=== PATIENT | female | born 1980 | race Caucasian/White ===

== ENCOUNTER 2023-06-11 12:44 | Outpatient (RCR) | payer BC, SELFPAY ==
[2023-06-05 12:44] LABS: % Basophils 0.5 % (0-2); % Eosinophils 2.5 % (0-6); % Immature Granulocytes 0.2 % (0-0.5); % Lymphocytes 16.6 % (20.5-51.1); % Monocytes 12.1 % (1.7-9.3); % Neutrophils 68.1 % (42.2-75.2); Absolute Eosinophils 0.1 10^3/uL (0-0.7); Absolute Lymphocytes 0.7 10^3/uL (1.2-3.4); Absolute Monocytes 0.5 10^3/uL (0.1-0.6); Absolute Neutrophils 2.8 10^3/uL (1.4-6.5); Hemoglobin 13.2 g/dL (12.0-16.0); Mean Corp Hgb Conc. 34.7 g/dL (33.0-37.0); Mean Corpuscular Hgb 33.7 pg (27.0-31.0); Mean Corpuscular Volume 96.9 fL (81.0-99.0); Mean Platelet Volume 9.5 fL (7.4-10.4); Nucleated Red Blood Cells % 0 %; Platelet Count 271 10^3/uL (130-400); Red Blood Cell Count 3.92 10^6/uL (4.20-5.40); Red Cell Dist. Width 12.1 % (11.5-14.5)
[2023-06-05 12:59] LABS: Lactic Acid 0.6 mmol/L (0.7-2.0)
[2023-06-05 13:02] LABS: ALT (SGPT) 17 U/L (0-35); AST (SGOT) 26 U/L (14-36); Albumin 4.7 g/dl (3.5-5.0); Alkaline Phosphatase 36 U/L (38-126); Blood Urea Nitrogen 21 mg/dl (7-17); Calcium 9.2 mg/dl (8.4-10.2); Carbon Dioxide 25 mmol/L (22-30); Chloride 103 mmol/L (98-107); Glucose 92 mg/dl (70-99); Potassium 4.2 mmol/L (3.5-5.1); Sodium 134 mmol/L (135-145); Total Bilirubin 0.9 mg/dl (0.2-1.3); Total Protein 6.9 g/dl (6.3-8.2); eGFR > 60.00
[2023-06-05 13:10] LABS: NT-proBNP 38.6 pg/ml
[2023-06-05 13:45] LABS: Erythrocyte Sed Rate 2 mm/hour (0-20)
[2023-06-05 15:10] LABS: Urine Bacteria Few (Negative); Urine Red Blood Cell 0-2 /HPF (0-2); Urine Squamous Cell 0-2 /LPF (Few); Urine White Cell 0-2 /HPF (0-5)
[2023-06-05 15:38] LABS: Protein/creatinine Ratio 0.1; Urine Protein 6 mg/dl
[2023-06-05 23:26] LABS: Complement C3 63 mg/dl (88-165)
[2023-06-07 11:53] LABS: Haptoglobin 79 mg/dL (30-200)
[2023-06-07 23:12] LABS: Vitamin B6 Results 121.9 nmol/L (20.0-125.0)
[2023-06-11 14:30] VITALS: BP 111/70
[2023-06-11] MEDS: BENLYSTA 250 MG IV (14:37)
[2023-06-11 14:41] VITALS: BMI 21.3
== END 2023-06-12 09:26 | disposition home or self-care (01) ==
LOC: OID 12:44
PROVIDERS: ATTENDING PHYSICIAN Internal Medicine; FAMILY PHYSICIAN Nurse Practitioner Primary Care
DX: M32.9 Systemic lupus erythematosus, unspecified (principal)
CPT/HCPCS: 80053; 81015; 82570; 83010; 83605; 83880; 84156; 84207; 85025; 85652; 86140; 86160; 86880; 96365; J0490

== ENCOUNTER 2023-07-10 14:31 | Outpatient (RCR) | payer BC, SELFPAY ==
[2023-07-10 14:33] VITALS: BP 117/70
[2023-07-10] MEDS: BENLYSTA 250 MG IV (14:34)
== END 2023-07-21 23:59 | disposition home or self-care (01) ==
LOC: OID 14:31
PROVIDERS: ATTENDING PHYSICIAN Internal Medicine; FAMILY PHYSICIAN Nurse Practitioner Primary Care
DX: M32.9 Systemic lupus erythematosus, unspecified (principal)
CPT/HCPCS: 96365; J0490

== ENCOUNTER → 2023-07-25 13:27 | Outpatient (REF) | payer BC, SELFPAY | LOC: CLAB 13:27 | PROVIDERS: ATTENDING PHYSICIAN Nurse Practitioner Primary Care; REFERRING PHYSICIAN Dermatology | DX: L30.8 Other specified dermatitis (principal) | CPT/HCPCS: 87070; 87077; 87147; 87186; 87205 ==

== ENCOUNTER 2023-08-07 13:34 | Outpatient (RCR) | payer BC, SELFPAY ==
[2023-08-07] MEDS: BENLYSTA 250 MG IV (14:10)
[2023-08-07 14:12] VITALS: BP 125/63
[2023-08-20 10:52] LABS: % Basophils 0.3 % (0-2); % Lymphocytes 17.1 % (20.5-51.1); % Monocytes 11.3 % (1.7-9.3); % Neutrophils 67.3 % (42.2-75.2); Absolute Eosinophils 0.1 10^3/uL (0-0.7); Absolute Lymphocytes 0.6 10^3/uL (1.2-3.4); Absolute Monocytes 0.4 10^3/uL (0.1-0.6); Absolute Neutrophils 2.3 10^3/uL (1.4-6.5); Hematocrit 38.5 % (37.0-47.0); Hemoglobin 13.2 g/dL (12.0-16.0); Mean Corp Hgb Conc. 34.3 g/dL (33.0-37.0); Mean Corpuscular Hgb 33.5 pg (27.0-31.0); Mean Corpuscular Volume 97.7 fL (81.0-99.0); Mean Platelet Volume 9.2 fL (7.4-10.4); Platelet Count 281 10^3/uL (130-400); Red Blood Cell Count 3.94 10^6/uL (4.20-5.40); Red Cell Dist. Width 12.8 % (11.5-14.5); White Blood Cell Count 3.5 10^3/uL (4.8-10.8)
[2023-08-20 11:51] LABS: Iron 133 ug/dl (37-170); Percent Saturation 53 % (20-50); Total Iron Binding Capacity 247 ug/dl (265-497)
== END 2023-08-20 23:59 | disposition home or self-care (01) ==
LOC: OID 13:34
PROVIDERS: Internal Medicine Gastroenterology; ATTENDING PHYSICIAN Internal Medicine; FAMILY PHYSICIAN Nurse Practitioner Primary Care
DX: M32.9 Systemic lupus erythematosus, unspecified (principal)
CPT/HCPCS: 36415; 82728; 83540; 83550; 85025; 96365; J0490

== ENCOUNTER 2023-09-03 13:55 | Outpatient (RCR) | payer BC, SELFPAY ==
[2023-09-03 14:30] VITALS: BP 108/70
[2023-09-03] MEDS: BENLYSTA 250 MG IV (14:54)
[2023-09-03 14:57] VITALS: BMI 20.6
== END 2023-09-04 10:07 | disposition home or self-care (01) ==
LOC: OID 13:55
PROVIDERS: ATTENDING PHYSICIAN Internal Medicine; FAMILY PHYSICIAN Nurse Practitioner Primary Care
DX: M32.9 Systemic lupus erythematosus, unspecified (principal)
CPT/HCPCS: 96365; J0490

== ENCOUNTER 2023-10-16 09:33 | Outpatient (RCR) | payer BC, SELFPAY ==
[2023-10-01] MEDS: BENLYSTA 250 MG IV (14:21)
[2023-10-01 14:24] VITALS: BMI 20.6
[2023-10-01 14:27] VITALS: BP 122/77
[2023-10-01 15:19] LABS: TSH Reflex To Free T4 0.61 uIU/ml (0.47-4.68)
[2023-10-01 16:00] LABS: Erythrocyte Sed Rate 11 mm/hour (0-20)
[2023-10-01 16:14] LABS: Vitamin B12 546 pg/ml (239-931)
[2023-10-03 13:58] LABS: Lyme Antibody Screen, EIA Negative (Negative)
[2023-10-05 00:12] LABS: Albumin 5.18 g/dL (3.75-5.01); Alpha 1 Globulin 0.27 g/dL (0.19-0.46); Alpha 2 Globulin 0.59 g/dL (0.48-1.05); Free Kappa Light Chains,Quant 11.17 mg/L (3.30-19.40); Free Lambda Light Chains,Quant 12.31 mg/L (5.71-26.30); IgA 179 mg/dL (68-408); IgG 928 mg/dL (768-1632); IgM 52 mg/dL (35-263); Immunofixation Electrophoresis IFE Done; Kappa/Lambda Fr Light Ratio 0.91 (0.26-1.65); Total Protein-Electrophoresis 7.6 g/dL (6.3-8.2)
[2023-10-06 05:56] LABS: Methylmalonic Acid 0.13 umol/L (0.00-0.40)
[2023-10-16 09:53] LABS: % Basophils 0.6 % (0-2); % Eosinophils 4.2 % (0-6); % Immature Granulocytes 0.2 % (0-0.5); % Monocytes 7.5 % (1.7-9.3); % Neutrophils 71.5 % (42.2-75.2); Absolute Eosinophils 0.2 10^3/uL (0-0.7); Absolute Lymphocytes 0.8 10^3/uL (1.2-3.4); Absolute Monocytes 0.4 10^3/uL (0.1-0.6); Absolute Neutrophils 3.7 10^3/uL (1.4-6.5); Hemoglobin 13.2 g/dL (12.0-16.0); Mean Corp Hgb Conc. 33.8 g/dL (33.0-37.0); Mean Corpuscular Hgb 33.2 pg (27.0-31.0); Mean Platelet Volume 8.9 fL (7.4-10.4); Platelet Count 325 10^3/uL (130-400); Red Blood Cell Count 3.98 10^6/uL (4.20-5.40); Red Cell Dist. Width 12.4 % (11.5-14.5); White Blood Cell Count 5.2 10^3/uL (4.8-10.8)
[2023-10-16 10:36] LABS: Nucleated Red Blood Cells % 0 %
[2023-10-16 11:02] LABS: Erythrocyte Sed Rate 8 mm/hour (0-20)
[2023-10-16 11:28] LABS: Urine Protein 11 mg/dl
[2023-10-16 11:29] LABS: ALT (SGPT) 17 U/L (0-35); AST (SGOT) 22 U/L (14-36); Albumin 4.7 g/dl (3.5-5.0); Alkaline Phosphatase 37 U/L (38-126); Blood Urea Nitrogen 16 mg/dl (7-17); Calcium 9.6 mg/dl (8.4-10.2); Carbon Dioxide 30 mmol/L (22-30); Chloride 101 mmol/L (98-107); Estimated Creatinine Clearance 80 ml/min; Glucose 78 mg/dl (70-99); Potassium 4.5 mmol/L (3.5-5.1); Sodium 138 mmol/L (135-145); Total Bilirubin 0.6 mg/dl (0.2-1.3); Total Protein 7.1 g/dl (6.3-8.2); eGFR > 60.00
[2023-10-16 11:29] LABS: Urine Albumin Negative (Neg - Trace); Urine Bilirubin Negative (Negative); Urine Character Clear (Clear); Urine Color Yellow; Urine Glucose Negative (Negative); Urine Ketone Negative (Negative); Urine Leukocyte Negative (Negative); Urine Nitrite Negative (Negative); Urine Occult Blood Negative (Negative); Urine Specific Gravity 1.005 (<1.030); Urine Urobilinogen Negative (Neg - 1+)
[2023-10-16 11:35] LABS: Urine Squamous Cell 21-25 /LPF (Few)
[2023-10-16 11:37] LABS: Urine Red Blood Cell None Seen /HPF (0-2); Urine White Cell None Seen /HPF (0-5)
[2023-10-16 11:43] LABS: Complement C3 78 mg/dl (88-165)
[2023-10-16 15:58] LABS: Protein/creatinine Ratio 0.4
[2023-10-17 19:19] LABS: Hepatitis B Core Ab, Total Negative (Negative)
[2023-10-17 19:20] LABS: Hepatitis A Antibody, Total Negative (Negative)
[2023-10-18 22:22] LABS: ds-DNA Ab, IgG Reflex To Titer 8 IU (0-24)
[2023-10-18 23:02] LABS: Quantiferon Mitogen minus NIL 9.99 IU/mL; Quantiferon NIL 0.01 IU/mL; Quantiferon Plus TB1 minus NIL 0.01 IU/mL (<=0.34); Quantiferon Plus TB2 minus NIL 0.04 IU/mL (<=0.34); Quantiferon TB Gold Plus Negative (Negative)
== END 2023-10-20 23:59 | disposition home or self-care (01) ==
LOC: OID 09:33
PROVIDERS: ATTENDING PHYSICIAN Internal Medicine; FAMILY PHYSICIAN Nurse Practitioner Primary Care
DX: M32.9 Systemic lupus erythematosus, unspecified (principal)
CPT/HCPCS: 36415; 80053; 81003; 81015; 82570; 82607; 82784; 83521; 83921; 84155; 84156; 84165; 84443; 85025; 85652; 86140; 86160; 86225; 86334; 86480; 86618; 86704; 86705; 86708; 87902; 96365; J0490

== ENCOUNTER 2023-10-29 14:23 | Outpatient (RCR) | payer BC, SELFPAY ==
[2023-10-29 14:30] VITALS: BP 106/59
[2023-10-29] MEDS: BENLYSTA 250 MG IV (14:31)
== END 2023-10-30 10:57 | disposition home or self-care (01) ==
LOC: OID 14:23
PROVIDERS: ATTENDING PHYSICIAN Internal Medicine; FAMILY PHYSICIAN Nurse Practitioner Primary Care
DX: M32.9 Systemic lupus erythematosus, unspecified (principal)
CPT/HCPCS: 96365; J0490

== ENCOUNTER 2023-11-26 14:14 | Outpatient (RCR) | payer BC, SELFPAY ==
[2023-11-26] MEDS: BENLYSTA 250 MG IV (15:07)
[2023-11-26 15:18] VITALS: BP 110/74
== END 2023-11-27 10:17 | disposition home or self-care (01) ==
LOC: OID 14:14
PROVIDERS: ATTENDING PHYSICIAN Internal Medicine; FAMILY PHYSICIAN Nurse Practitioner Primary Care
DX: M32.9 Systemic lupus erythematosus, unspecified (principal)
CPT/HCPCS: 96365; J0490

== ENCOUNTER → 2023-12-20 08:32 | Outpatient (REF) | payer BC, SELFPAY ==
[2023-12-20 09:34] LABS: HDL Cholesterol 84 mg/dl; LDL Cholesterol, Calculated 59 mg/dl; Total Cholesterol 157 mg/dl (50-199); Triglyceride 72 mg/dl (10-149); Very Low Density Lipoprotein 14 mg/dl (0-30)
== END ==
LOC: OIDL 08:32
PROVIDERS: ATTENDING PHYSICIAN Nurse Practitioner Primary Care
DX: Z00.00 Encounter for general adult medical examination without abnormal findings (principal)
CPT/HCPCS: 80061

== ENCOUNTER 2023-12-26 09:12 | Outpatient (RCR) | payer BC, SELFPAY ==
[2023-12-26 09:19] VITALS: BP 128/73
[2023-12-26] MEDS: BENLYSTA 250 MG IV (09:37)
[2023-12-26 09:41] LABS: % Basophils 1.3 % (0-2); % Eosinophils 5.2 % (0-6); % Monocytes 14.5 % (1.7-9.3); Absolute Eosinophils 0.2 10^3/uL (0-0.7); Absolute Lymphocytes 0.6 10^3/uL (1.2-3.4); Absolute Monocytes 0.5 10^3/uL (0.1-0.6); Absolute Neutrophils 1.8 10^3/uL (1.4-6.5); Hematocrit 37.9 % (37.0-47.0); Mean Corp Hgb Conc. 34.3 g/dL (33.0-37.0); Mean Corpuscular Hgb 32.6 pg (27.0-31.0); Mean Platelet Volume 9.6 fL (7.4-10.4); Platelet Count 265 10^3/uL (130-400); Red Blood Cell Count 3.99 10^6/uL (4.20-5.40); Red Cell Dist. Width 11.7 % (11.5-14.5); White Blood Cell Count 3.1 10^3/uL (4.8-10.8)
[2023-12-26 10:17] LABS: ALT (SGPT) 17 U/L (0-35); AST (SGOT) 23 U/L (14-36); Albumin 4.6 g/dl (3.5-5.0); Alkaline Phosphatase 35 U/L (38-126); Blood Urea Nitrogen 18 mg/dl (7-17); Calcium 9.3 mg/dl (8.4-10.2); Carbon Dioxide 22 mmol/L (22-30); Chloride 104 mmol/L (98-107); Glucose 89 mg/dl (70-99); Potassium 4.1 mmol/L (3.5-5.1); Sodium 138 mmol/L (135-145); Total Bilirubin 0.9 mg/dl (0.2-1.3); Total Protein 6.6 g/dl (6.3-8.2); eGFR > 60.00
[2023-12-26 11:04] LABS: Erythrocyte Sed Rate 9 mm/hour (0-20)
[2023-12-26 11:17] LABS: Urine Albumin Negative (Neg - Trace); Urine Bilirubin Negative (Negative); Urine Character Clear (Clear); Urine Color Yellow; Urine Glucose Negative (Negative); Urine Ketone Negative (Negative); Urine Leukocyte Negative (Negative); Urine Nitrite Negative (Negative); Urine Occult Blood Negative (Negative); Urine Urobilinogen Negative (Neg - 1+)
[2023-12-26 11:33] LABS: C-Reactive Protein < 5.00 mg/L (0.0-10.00)
[2023-12-26 11:46] LABS: Complement C3 76 mg/dl (88-165)
[2023-12-26 11:47] LABS: Urine Red Blood Cell 0-2 /HPF (0-2); Urine White Cell 0-2 /HPF (0-5)
[2023-12-26 12:03] LABS: Protein/creatinine Ratio 0.5; Urine Protein 11 mg/dl
[2023-12-28 01:27] LABS: ds-DNA Ab, IgG Reflex To Titer 5 IU (0-24)
== END 2023-12-27 09:47 | disposition home or self-care (01) ==
LOC: OID 09:12
PROVIDERS: ATTENDING PHYSICIAN Internal Medicine; FAMILY PHYSICIAN Nurse Practitioner Primary Care
DX: M32.9 Systemic lupus erythematosus, unspecified (principal)
CPT/HCPCS: 36415; 80053; 81003; 81015; 82570; 84156; 85025; 85652; 86140; 86160; 86225; 96365; J0490

== ENCOUNTER 2024-02-18 14:09 | Outpatient (RCR) | payer BC, SELFPAY ==
[2024-01-22] MEDS: BENLYSTA 250 MG IV (14:25)
[2024-01-22 14:32] VITALS: BP 110/65
[2024-02-18] MEDS: BENLYSTA 250 MG IV (14:28)
[2024-02-18 14:36] VITALS: BP 126/77
== END 2024-02-19 10:31 | disposition home or self-care (01) ==
LOC: OID 14:09
PROVIDERS: ATTENDING PHYSICIAN Internal Medicine; FAMILY PHYSICIAN Nurse Practitioner Primary Care
DX: M32.9 Systemic lupus erythematosus, unspecified (principal)
CPT/HCPCS: 96365; J0490

== ENCOUNTER → 2024-02-25 09:16 | Outpatient (REF) | payer BC, SELFPAY | LOC: HWWDC 09:16 | PROVIDERS: ATTENDING PHYSICIAN Nurse Practitioner Primary Care | DX: Z12.31 Encounter for screening mammogram for malignant neoplasm of breast (principal) | CPT/HCPCS: 77063; 77067 ==

== ENCOUNTER → 2024-02-25 09:44 | Outpatient (REF) | payer BC, SELFPAY | LOC: HWRCS 09:44 | PROVIDERS: ATTENDING PHYSICIAN Internal Medicine Cardiovascular Disease; FAMILY PHYSICIAN Nurse Practitioner Primary Care | DX: I34.0 Nonrheumatic mitral (valve) insufficiency (principal) | CPT/HCPCS: 93306 ==

== ENCOUNTER 2024-03-17 12:52 | Outpatient (RCR) | payer BC, SELFPAY ==
[2024-03-17] MEDS: BENLYSTA 250 MG IV (13:38)
[2024-03-17 13:46] VITALS: BP 115/73
[2024-03-17 15:07] LABS: % Basophils 0.6 % (0-2); % Eosinophils 4.1 % (0-6); % Lymphocytes 14.9 % (20.5-51.1); % Monocytes 9.7 % (1.7-9.3); % Neutrophils 70.7 % (42.2-75.2); Absolute Eosinophils 0.3 10^3/uL (0-0.7); Absolute Monocytes 0.6 10^3/uL (0.1-0.6); Absolute Neutrophils 4.6 10^3/uL (1.4-6.5); Hematocrit 37.1 % (37.0-47.0); Hemoglobin 12.7 g/dL (12.0-16.0); Mean Corp Hgb Conc. 34.2 g/dL (33.0-37.0); Mean Corpuscular Hgb 32.2 pg (27.0-31.0); Mean Corpuscular Volume 93.9 fL (81.0-99.0); Platelet Count 287 10^3/uL (130-400); Red Blood Cell Count 3.95 10^6/uL (4.20-5.40); White Blood Cell Count 6.5 10^3/uL (4.8-10.8)
[2024-03-17 15:26] LABS: Nucleated Red Blood Cells % 0 %
[2024-03-17 15:35] LABS: Urine Albumin Negative (Neg - Trace); Urine Bilirubin Negative (Negative); Urine Character Clear (Clear); Urine Color Yellow; Urine Glucose Negative (Negative); Urine Ketone Negative (Negative); Urine Leukocyte Trace (Negative); Urine Nitrite Negative (Negative); Urine Occult Blood Negative (Negative); Urine Urobilinogen Negative (Neg - 1+)
[2024-03-17 15:43] LABS: ALT (SGPT) 16 U/L (0-35); AST (SGOT) 21 U/L (14-36); Albumin 4.1 g/dl (3.5-5.0); Alkaline Phosphatase 36 U/L (38-126); Blood Urea Nitrogen 20 mg/dl (7-17); Calcium 8.5 mg/dl (8.4-10.2); Carbon Dioxide 26 mmol/L (22-30); Chloride 102 mmol/L (98-107); Glucose 88 mg/dl (70-99); Potassium 4.1 mmol/L (3.5-5.1); Sodium 138 mmol/L (135-145); Total Bilirubin 0.2 mg/dl (0.2-1.3); Total Protein 6.2 g/dl (6.3-8.2); eGFR > 60.00
[2024-03-17 15:44] LABS: Urine Squamous Cell 16-20 /LPF (Few)
[2024-03-17 15:45] LABS: Urine Bacteria Moderate (Negative); Urine Red Blood Cell 0-2 /HPF (0-2)
[2024-03-17 16:01] LABS: Urine Protein < 5 mg/dl
[2024-03-17 16:28] LABS: Erythrocyte Sed Rate 8 mm/hour (0-20)
[2024-03-17 16:59] LABS: Complement C3 88 mg/dl (88-165)
[2024-03-17 17:30] LABS: Hepatitis B Core Ab, Total Negative (Negative)
[2024-03-19 22:54] LABS: HBV Quant by NAAT IU/mL Not Detected; HBV Quant by NAAT Interp Not Detected (Not Detected); HBV Quant by NAAT Log IU/mL Not Detected log IU/mL
[2024-03-20 07:08] LABS: DNase-B Antibody 153 U/mL (<=259)
[2024-03-20 20:41] LABS: HCV Quant by NAAT IU/mL Not Detected; HCV Quant by NAAT Interp Not Detected (Not Detected); HCV Quant by NAAT Log IU/mL Not Detected log IU/mL
== END 2024-03-18 10:10 | disposition home or self-care (01) ==
LOC: OID 12:52
PROVIDERS: Physician Assistant; ATTENDING PHYSICIAN Internal Medicine; FAMILY PHYSICIAN Nurse Practitioner Primary Care
DX: M32.9 Systemic lupus erythematosus, unspecified (principal)
CPT/HCPCS: 36415; 80053; 81003; 81015; 82570; 84156; 85025; 85652; 86140; 86160; 86215; 86704; 87517; 87522; 96365; J0490

== ENCOUNTER 2024-04-14 11:08 | Outpatient (RCR) | payer BC, SELFPAY ==
[2024-04-14 12:00] VITALS: BP 112/7
[2024-04-14] MEDS: BENLYSTA 250 MG IV (12:04)
== END 2024-04-16 09:51 | disposition home or self-care (01) ==
LOC: OID 11:08
PROVIDERS: ATTENDING PHYSICIAN Internal Medicine; FAMILY PHYSICIAN Nurse Practitioner Primary Care
DX: M32.9 Systemic lupus erythematosus, unspecified (principal)
CPT/HCPCS: 96365; J0490

== ENCOUNTER 2024-05-13 14:17 | Outpatient (RCR) | payer BC, SELFPAY ==
[2024-05-13 14:20] VITALS: BP 116/70
[2024-05-13] MEDS: BENLYSTA 250 MG IV (14:22)
[2024-05-13] MEDS: CLARITIN 10 MG PO (15:20)
--- NOTE | 2024-05-13 15:41 | PTCARENOTE ---
1520: pt c/o red itchy rash on abdomen , infusion almost complete, and pt did not want this public relations writer to turn off, pt did state that she did not take claritin prior to infusion today, which she usually does. no s/s distress noted; TT Meagan TECHNICAL OPERATOR, and
claritin ordered and given. will monitor.
--- NOTE | 2024-05-13 15:44 | PTCARENOTE ---
pt's rash still itching and stating it's now on b/l arms, (pt refusing benadryl iv at this time which is on reaction sheet protocol) Pt in no distress 100% ra pox, vs: hr 65, bp: 134/90; 20mg iv pepcid and 50 of hydrocortisone given (pt only
wanting 50mg instead of 100mg). Pt states she feels fine. will follow.
[2024-05-13] MEDS: PEPCID 10 MG IV (15:53)
[2024-05-13] MEDS: PEPCID 10 ML IV (15:53)
[2024-05-13] MEDS: SOLU-CORTEF 50 MG IV (15:57)
--- NOTE | 2024-05-13 16:01 | PTCARENOTE ---
pt in no distress after meds and rash now dissipating .
== END 2024-05-14 10:15 | disposition home or self-care (01) ==
LOC: OID 14:17
PROVIDERS: ATTENDING PHYSICIAN Internal Medicine; FAMILY PHYSICIAN Nurse Practitioner Primary Care
DX: M32.9 Systemic lupus erythematosus, unspecified (principal)
CPT/HCPCS: 96365; 96375; J0490

== ENCOUNTER 2024-06-10 13:21 | Outpatient (RCR) | payer BC, SELFPAY ==
[2024-06-10] MEDS: CLARITIN 10 MG PO (14:08)
[2024-06-10] MEDS: TYLENOL 1000 MG PO (14:08)
[2024-06-10] MEDS: SOLU-MEDROL PF 50.64 MG IV (14:09)
[2024-06-10] MEDS: BENLYSTA 250 MG IV (14:26)
[2024-06-10 14:28] VITALS: BP 128/76
== END 2024-06-11 09:36 | disposition home or self-care (01) ==
LOC: OID 13:21
PROVIDERS: ATTENDING PHYSICIAN Internal Medicine; FAMILY PHYSICIAN Nurse Practitioner Primary Care
DX: M32.9 Systemic lupus erythematosus, unspecified (principal)
CPT/HCPCS: 96365; 96367; J0490

== ENCOUNTER 2024-07-06 11:26 | Outpatient (RCR) | payer BC, SELFPAY ==
[2024-06-26 09:11] LABS: % Basophils 1.7 % (0-2); % Eosinophils 4.1 % (0-6); % Immature Granulocytes 0.9 % (0-0.5); % Lymphocytes 15.3 % (20.5-51.1); % Monocytes 9.4 % (1.7-9.3); % Neutrophils 68.6 % (42.2-75.2); Absolute Basophils 0.1 10^3/uL (0-0.2); Absolute Eosinophils 0.2 10^3/uL (0-0.7); Absolute Immature Granulocytes 0.1 10^3/uL (0-0.05); Absolute Lymphocytes 0.8 10^3/uL (1.2-3.4); Absolute Monocytes 0.5 10^3/uL (0.1-0.6); Absolute Neutrophils 3.6 10^3/uL (1.4-6.5); Hematocrit 39.8 % (37.0-47.0); Hemoglobin 13.5 g/dL (12.0-16.0); Mean Corp Hgb Conc. 33.9 g/dL (33.0-37.0); Mean Corpuscular Hgb 31.6 pg (27.0-31.0); Mean Corpuscular Volume 93.2 fL (81.0-99.0); Mean Platelet Volume 8.6 fL (7.4-10.4); Platelet Count 476 10^3/uL (130-400); Red Blood Cell Count 4.27 10^6/uL (4.20-5.40); Red Cell Dist. Width 11.9 % (11.5-14.5); White Blood Cell Count 5.3 10^3/uL (4.8-10.8)
[2024-06-26 09:47] LABS: Nucleated Red Blood Cells % 0 %
[2024-06-26 10:15] LABS: ALT (SGPT) 28 U/L (0-35); AST (SGOT) 20 U/L (14-36); Albumin 4.3 g/dl (3.5-5.0); Alkaline Phosphatase 39 U/L (38-126); Blood Urea Nitrogen 23 mg/dl (7-17); Calcium 9.4 mg/dl (8.4-10.2); Carbon Dioxide 30 mmol/L (22-30); Chloride 98 mmol/L (98-107); Glucose 88 mg/dl (70-99); Iron 82 ug/dl (37-170); Potassium 4.6 mmol/L (3.5-5.1); Sodium 135 mmol/L (135-145); Total Bilirubin 0.6 mg/dl (0.2-1.3); Total Protein 6.8 g/dl (6.3-8.2); eGFR > 60.00
[2024-06-26 10:18] LABS: C-Reactive Protein < 5.00 mg/L (0.0-10.00)
[2024-06-26 10:24] LABS: Percent Saturation 29 % (20-50); Total Iron Binding Capacity 277 ug/dl (265-497)
[2024-06-26 10:53] LABS: Ferritin 60.8 ng/ml (6.24-137)
[2024-06-26 11:12] LABS: Erythrocyte Sed Rate 7 mm/hour (0-20)
[2024-06-26 12:50] LABS: Protein/creatinine Ratio 0.3; Urine Protein 11 mg/dl
[2024-06-26 13:24] LABS: Urine Bacteria Few (Negative); Urine Red Blood Cell 0-2 /HPF (0-2); Urine Squamous Cell 16-20 /LPF (Few); Urine White Cell 0-2 /HPF (0-5)
[2024-06-28 01:38] LABS: ds-DNA Ab, IgG Reflex To Titer 83 IU (0-24)
[2024-06-29 00:04] LABS: Complement C3 70 mg/dl (88-165)
[2024-07-06 11:50] VITALS: BP 109/63
[2024-07-06] MEDS: SAPHNELO 100 MG IV (11:56)
[2024-07-08 05:44] LABS: Quantiferon Mitogen minus NIL 7.99 IU/mL; Quantiferon TB Gold Plus Negative (Negative)
== END 2024-07-07 08:54 | disposition home or self-care (01) ==
LOC: OID 11:26
PROVIDERS: ATTENDING PHYSICIAN Internal Medicine; FAMILY PHYSICIAN Nurse Practitioner Primary Care
DX: M32.9 Systemic lupus erythematosus, unspecified (principal)
CPT/HCPCS: 36415; 80053; 81015; 82570; 82728; 83540; 83550; 84156; 85025; 85652; 86140; 86160; 86225; 86256; 86480; 96365; J0491

== ENCOUNTER 2024-08-03 13:01 | Outpatient (RCR) | payer BC, SELFPAY ==
[2024-08-03 13:08] VITALS: BP 124/66
[2024-08-03] MEDS: SAPHNELO 100 MG IV (13:26)
== END 2024-08-04 10:44 | disposition home or self-care (01) ==
LOC: OID 13:01
PROVIDERS: ATTENDING PHYSICIAN Internal Medicine; FAMILY PHYSICIAN Nurse Practitioner Primary Care
DX: M32.9 Systemic lupus erythematosus, unspecified (principal)
CPT/HCPCS: 96365; J0491

== ENCOUNTER 2024-08-31 13:46 | Outpatient (RCR) | payer BC, SELFPAY ==
[2024-08-31 13:54] VITALS: BP 110/66
[2024-08-31] MEDS: CLARITIN 10 MG PO (14:10)
[2024-08-31] MEDS: TYLENOL 650 MG PO (14:10)
[2024-08-31] MEDS: SAPHNELO 100 MG IV (14:12)
[2024-08-31 15:00] VITALS: BP 110/65
== END 2024-09-01 11:35 | disposition home or self-care (01) ==
LOC: OID 13:46
PROVIDERS: ATTENDING PHYSICIAN Internal Medicine; FAMILY PHYSICIAN Nurse Practitioner Primary Care
DX: M32.9 Systemic lupus erythematosus, unspecified (principal)
CPT/HCPCS: 96365; J0491

== ENCOUNTER 2024-09-28 11:21 | Outpatient (RCR) | payer BC, SELFPAY ==
[2024-09-23 11:59] LABS: Protein/creatinine Ratio 0.2; Urine Protein 9 mg/dl
[2024-09-23 16:05] LABS: Urine Albumin Negative (Neg - Trace); Urine Bilirubin Negative (Negative); Urine Character Clear (Clear); Urine Color Yellow; Urine Glucose Negative (Negative); Urine Ketone Negative (Negative); Urine Leukocyte Negative (Negative); Urine Nitrite Negative (Negative); Urine Occult Blood Negative (Negative); Urine Specific Gravity 1.005 (<1.030); Urine Urobilinogen Negative (Neg - 1+)
[2024-09-28 11:30] VITALS: BP 110/65
[2024-09-28] MEDS: SAPHNELO 100 MG IV (11:44)
== END 2024-09-29 08:22 | disposition home or self-care (01) ==
LOC: OID 11:21
PROVIDERS: Internal Medicine; ATTENDING PHYSICIAN Internal Medicine; FAMILY PHYSICIAN Nurse Practitioner Primary Care
DX: M32.9 Systemic lupus erythematosus, unspecified (principal)
CPT/HCPCS: 81003; 82570; 84156; 86480; 96365; J0491

== ENCOUNTER 2024-10-26 11:30 | Outpatient (RCR) | payer BC, SELFPAY ==
[2024-10-26 11:44] VITALS: BP 111/68
[2024-10-26] MEDS: SAPHNELO 100 MG IV (11:58)
[2024-10-26 12:45] VITALS: BP 109/72
== END 2024-10-27 11:14 | disposition home or self-care (01) ==
LOC: OID 11:30
PROVIDERS: ATTENDING PHYSICIAN Internal Medicine; FAMILY PHYSICIAN Nurse Practitioner Primary Care
DX: M32.9 Systemic lupus erythematosus, unspecified (principal)
CPT/HCPCS: 96365; J0491

== ENCOUNTER 2024-11-23 13:02 | Outpatient (RCR) | payer BC, SELFPAY ==
[2024-11-23 13:09] VITALS: BP 111/72
[2024-11-23] MEDS: SAPHNELO 100 MG IV (13:24)
[2024-11-23 14:07] VITALS: BP 115/71
== END 2024-12-16 13:51 | disposition home or self-care (01) ==
LOC: OID 13:02
PROVIDERS: ATTENDING PHYSICIAN Internal Medicine; FAMILY PHYSICIAN Nurse Practitioner Primary Care
DX: M32.9 Systemic lupus erythematosus, unspecified (principal)
CPT/HCPCS: 96365; J0491

== ENCOUNTER → 2024-12-18 07:41 | Outpatient (REF) | payer BC, SELFPAY ==
[2024-12-18 09:38] LABS: Urine Character Slightly Cloudy (Clear)
[2024-12-18 10:07] LABS: Urine Squamous Cell >30 /LPF (Few)
[2024-12-18 10:09] LABS: Urine Red Blood Cell 50-60 /HPF (0-2)
[2024-12-18 10:11] LABS: Urine White Cell 90-100 /HPF (0-5)
[2024-12-18 12:52] LABS: Hematocrit 39.9 % (37.0-47.0); Hemoglobin 13.3 g/dL (12.0-16.0); Mean Corp Hgb Conc. 33.3 g/dL (33.0-37.0); Mean Corpuscular Volume 94.3 fL (81.0-99.0); Nucleated Red Blood Cells % 0 %; Platelet Count 287 10^3/uL (130-400); Red Cell Dist. Width 12.6 % (11.5-14.5)
[2024-12-18 13:24] LABS: ALT (SGPT) 16 U/L (0-35); AST (SGOT) 20 U/L (14-36); Albumin 4.8 g/dl (3.5-5.0); Alkaline Phosphatase 33 U/L (38-126); Blood Urea Nitrogen 15 mg/dl (7-17); Calcium 9.8 mg/dl (8.4-10.2); Carbon Dioxide 30 mmol/L (22-30); Chloride 103 mmol/L (98-107); Glucose 89 mg/dl (70-99); Potassium 4.2 mmol/L (3.5-5.1); Sodium 139 mmol/L (135-145); Total Protein 7.2 g/dl (6.3-8.2); eGFR > 60.00
== END ==
LOC: OIDL 07:41
PROVIDERS: ATTENDING PHYSICIAN Internal Medicine; REFERRING PHYSICIAN Nurse Practitioner Primary Care
DX: A15.9 Respiratory tuberculosis unspecified (principal); M32.9 Systemic lupus erythematosus, unspecified
CPT/HCPCS: 80053; 81003; 81015; 82570; 84156; 85025; 87077; 87086; 87147

== ENCOUNTER → 2024-12-23 08:32 | Outpatient (REF) | payer BC, SELFPAY ==
[2024-12-23 10:17] LABS: Urine Character Clear (Clear)
== END ==
LOC: OIDL 08:32
PROVIDERS: ATTENDING PHYSICIAN Nurse Practitioner Primary Care
DX: R31.9 Hematuria, unspecified (principal)
CPT/HCPCS: 81003; 87086

== ENCOUNTER → 2024-12-28 10:54 | Outpatient (REF) | payer BC, SELFPAY | LOC: HWRAD 10:54 | PROVIDERS: ATTENDING PHYSICIAN Nurse Practitioner Family | DX: R10.9 Unspecified abdominal pain (principal); M32.9 Systemic lupus erythematosus, unspecified; R31.29 Other microscopic hematuria | CPT/HCPCS: 76770 ==

== ENCOUNTER 2025-01-18 11:28 | Outpatient (RCR) | payer BC, SELFPAY ==
[2024-12-22 11:40] VITALS: BP 110/65
[2024-12-22] MEDS: SAPHNELO 100 MG IV (11:58)
[2025-01-18 11:39] VITALS: BP 111/76
[2025-01-18] MEDS: SAPHNELO 100 MG IV (11:56)
== END 2025-01-19 23:59 | disposition home or self-care (01) ==
LOC: OID 11:28
PROVIDERS: ATTENDING PHYSICIAN Internal Medicine; FAMILY PHYSICIAN Nurse Practitioner Primary Care
DX: M32.9 Systemic lupus erythematosus, unspecified (principal)
CPT/HCPCS: 96365; J0491

== ENCOUNTER → 2025-01-25 10:06 | Outpatient (REF) | payer BC, SELFPAY ==
[2025-02-03 02:25] LABS: HPV, High Risk Not Detected; HPV, High Risk Source Cervical
== END ==
LOC: CPAP 10:06
PROVIDERS: ATTENDING PHYSICIAN Obstetrics & Gynecology Gynecology
DX: Z01.419 Encounter for gynecological examination (general) (routine) without abnormal findings (principal)
CPT/HCPCS: 87624; G0123

== ENCOUNTER 2025-02-15 11:31 | Outpatient (RCR) | payer BC, SELFPAY ==
[2025-02-03 12:55] LABS: Hematocrit 37.7 % (37.0-47.0); Hemoglobin 12.7 g/dL (12.0-16.0); Mean Corp Hgb Conc. 33.7 g/dL (33.0-37.0); Mean Corpuscular Volume 95.0 fL (81.0-99.0); Platelet Count 330 10^3/uL (130-400); Red Cell Dist. Width 12.1 % (11.5-14.5)
[2025-02-03 13:35] LABS: Urine Character Clear (Clear)
[2025-02-03 13:46] LABS: ALT (SGPT) 28 U/L (0-35); AST (SGOT) 26 U/L (14-36); Albumin 4.8 g/dl (3.5-5.0); Alkaline Phosphatase 35 U/L (38-126); Blood Urea Nitrogen 22 mg/dl (7-17); Calcium 9.3 mg/dl (8.4-10.2); Carbon Dioxide 28 mmol/L (22-30); Chloride 102 mmol/L (98-107); Glucose 86 mg/dl (70-99); Iron 128 ug/dl (37-170); Potassium 4.1 mmol/L (3.5-5.1); Sodium 138 mmol/L (135-145); Total Protein 7.2 g/dl (6.3-8.2); eGFR > 60.00
[2025-02-03 13:47] LABS: C-Reactive Protein < 5.00 mg/L (0.0-10.00)
[2025-02-03 13:55] LABS: Total Iron Binding Capacity 326 ug/dl (265-497)
[2025-02-03 14:22] LABS: Ferritin 27.5 ng/ml (6.24-137)
[2025-02-05 18:18] LABS: ds-DNA Ab, IgG Reflex To Titer 15 IU (0-24)
[2025-02-15 11:39] VITALS: BP 110/64
[2025-02-15] MEDS: SAPHNELO 100 MG IV (11:49)
== END 2025-02-19 23:59 | disposition home or self-care (01) ==
LOC: OID 11:31
PROVIDERS: ATTENDING PHYSICIAN Internal Medicine; PRIMARYCARE PHYSICIAN Nurse Practitioner Primary Care
DX: M32.9 Systemic lupus erythematosus, unspecified (principal)
CPT/HCPCS: 80053; 81003; 82570; 82728; 83540; 83550; 84156; 85025; 85652; 86140; 86160; 86225; 96365; J0491

== ENCOUNTER → 2025-02-25 08:05 | Outpatient (REF) | payer BC, SELFPAY | LOC: HWWDC 08:05 | PROVIDERS: ATTENDING PHYSICIAN Obstetrics & Gynecology Gynecology; FAMILY PHYSICIAN Nurse Practitioner Primary Care | DX: N83.209 Unspecified ovarian cyst, unspecified side (principal); Z12.31 Encounter for screening mammogram for malignant neoplasm of breast | CPT/HCPCS: 76830; 76856; 77063; 77067 ==

== ENCOUNTER → 2025-03-09 10:13 | Outpatient (REF) | payer BC, SELFPAY | LOC: HWRCS 10:13 | PROVIDERS: ATTENDING PHYSICIAN Nurse Practitioner Primary Care; REFERRING PHYSICIAN Internal Medicine Cardiovascular Disease | DX: I34.0 Nonrheumatic mitral (valve) insufficiency (principal); I36.1 Nonrheumatic tricuspid (valve) insufficiency; I27.20 Pulmonary hypertension, unspecified | CPT/HCPCS: 93306 ==

== ENCOUNTER 2025-03-15 10:46 | Outpatient (RCR) | payer BC, SELFPAY ==
[2025-02-24 09:01] LABS: Blood Urea Nitrogen 19 mg/dl (7-17); Calcium 9.0 mg/dl (8.4-10.2); Carbon Dioxide 25 mmol/L (22-30); Chloride 103 mmol/L (98-107); Glucose 92 mg/dl (70-99); HDL Cholesterol 79 mg/dl; LDL Cholesterol, Calculated 67 mg/dl; Potassium 4.2 mmol/L (3.5-5.1); Sodium 136 mmol/L (135-145); Very Low Density Lipoprotein 10 mg/dl (0-30); eGFR > 60.00
[2025-02-24 09:15] LABS: Vitamin D, 25-OH*** 74.0 ng/mL (30-80)
[2025-03-15] MEDS: SAPHNELO 100 MG IV (11:09)
[2025-03-15 11:11] VITALS: BP 100/66
== END 2025-03-16 10:30 | disposition home or self-care (01) ==
LOC: OID 10:46
PROVIDERS: ATTENDING PHYSICIAN Internal Medicine; PRIMARYCARE PHYSICIAN Nurse Practitioner Primary Care
DX: M32.9 Systemic lupus erythematosus, unspecified (principal)
CPT/HCPCS: 36415; 80048; 80061; 82306; 84443; 96365; J0491

== ENCOUNTER 2025-04-12 10:41 | Outpatient (RCR) | payer BC, SELFPAY ==
[2025-04-12 11:00] VITALS: BP 110/55
[2025-04-12] MEDS: SAPHNELO 100 MG IV (11:14)
[2025-04-12 11:21] LABS: Hematocrit 36.4 % (37.0-47.0); Hemoglobin 12.2 g/dL (12.0-16.0); Mean Corp Hgb Conc. 33.5 g/dL (33.0-37.0); Mean Corpuscular Volume 95.0 fL (81.0-99.0); Platelet Count 266 10^3/uL (130-400); Red Cell Dist. Width 12.1 % (11.5-14.5)
[2025-04-12 12:05] LABS: ALT (SGPT) 39 U/L (0-35); AST (SGOT) 35 U/L (14-36); Albumin 4.5 g/dl (3.5-5.0); Alkaline Phosphatase 35 U/L (38-126); Blood Urea Nitrogen 17 mg/dl (7-17); Calcium 9.1 mg/dl (8.4-10.2); Carbon Dioxide 24 mmol/L (22-30); Chloride 103 mmol/L (98-107); Glucose 92 mg/dl (70-99); Iron 70 ug/dl (37-170); Potassium 4.2 mmol/L (3.5-5.1); Sodium 136 mmol/L (135-145); Total Protein 6.8 g/dl (6.3-8.2); eGFR > 60.00
[2025-04-12 12:09] LABS: C-Reactive Protein 5.30 mg/L (0.0-10.00)
[2025-04-12 12:14] LABS: Total Iron Binding Capacity 309 ug/dl (265-497)
[2025-04-12 12:45] LABS: Ferritin 16.5 ng/ml (6.24-137)
[2025-04-12 12:59] LABS: Vitamin B12 675 pg/ml (239-931)
== END 2025-04-13 09:22 | disposition home or self-care (01) ==
LOC: OID 10:41
PROVIDERS: ATTENDING PHYSICIAN Internal Medicine; PRIMARYCARE PHYSICIAN Nurse Practitioner Primary Care; REFERRING PHYSICIAN Physician Assistant
DX: M32.9 Systemic lupus erythematosus, unspecified (principal); R53.83 Other fatigue; Z79.620 Long term (current) use of immunosuppressive biologic
CPT/HCPCS: 36415; 80053; 82570; 82607; 82728; 83540; 83550; 84156; 85025; 85652; 86140; 86160; 96365; J0491